=== PATIENT | male | born 1955 | race Caucasian/White ===

== ENCOUNTER 2017-07-24 15:13 | Day surgery (SDC) | payer BC ==
[~2017-07-24] VITALS: Ht 188 cm; Wt 105.4 kg
[~2017-07-24 15:13] MED LIST: GLUCOPHAGE1000 MG PO; GLUCOTROL5 MG PO; LITE COAT ASPI325 M1 PO; TOBREX5 ML LEFT EYE; VENTOLIN HFA18 GM IH
[2017-07-24] MEDS ORDERED: TRESIBA FL100 UNIT/1 SC (15:41)
[2017-07-24 15:49] VITALS: BP 132/896
[2017-07-24 16:14] LABS: CHLORIDE 102 MEQ/L (99-109); CREATININE 0.7 MG/DL (0.6-1.3); GFR ESTIMATE (CALCULATED) > 59 mL/min/ (58.99-99999); GLUCOSE 121 mg/dL (70-99); POTASSIUM 4.1 MEQ/L (3.7-5.4); SODIUM 134 MEQ/L (136-147); UREA NITROGEN (BUN) 15 mg/dL (9-23)
[2017-07-25] MEDS ORDERED: ADVIL,NUPRIN,M200 MG PO (16:50)
== END 2017-07-24 17:33 | disposition home or self-care (01) ==
LOC: SDC 15:13
PROVIDERS: Ophthalmology
PROC: 08J1XZZ Inspection of Left Eye, External Approach (ICD-10-PCS; principal; 2017-07-24)
DX: H33.22 Serous retinal detachment, left eye (principal); Z53.09 Procedure and treatment not carried out because of other contraindication
CPT/HCPCS: 80048; 93005

== ENCOUNTER 2017-07-25 16:24 | Day surgery (SDC) | payer BC ==
[~2017-07-25] VITALS: Ht 188 cm; Wt 106.0 kg
[~2017-07-25 16:24] MED LIST changes: +TRESIBA FL100 UNIT/1 SC
[2017-07-25] MEDS ORDERED: ADVIL,NUPRIN,M200 MG PO (16:50)
[2017-07-25 16:51] VITALS: BP 160/90
[2017-07-25 21:30] VITALS: BP 134/80
== END 2017-07-25 22:00 | disposition home or self-care (01) ==
LOC: SDC 16:24
PROVIDERS: Ophthalmology
DX: H33.42 Traction detachment of retina, left eye (principal); E11.319 Type 2 diabetes mellitus with unspecified diabetic retinopathy without macular edema; J44.9 Chronic obstructive pulmonary disease, unspecified; Z79.4 Long term (current) use of insulin; Z79.82 Long term (current) use of aspirin; F17.200 Nicotine dependence, unspecified, uncomplicated
CPT/HCPCS: 82948; 94640; J0690; J1100; J1120; J1885; J2250; J2795; J3010